=== PATIENT | female | born 1980 | race Caucasian/White ===

== ENCOUNTER → 2016-12-06 11:50 | Observation (INO) ==
[2016-12-06 11:30] LABS: Bilirubin,Urine Negative (Negative); Blood,Urine Negative (Negative); Clarity,Urine Clear (Clear); Color,Urine Yellow (Yellow); Glucose,Urine (UA) Normal (Normal); Ketones,Urine Negative (Negative); Leukocyte Esterase,Urine Trace (Negative); Nitrite,Urine Negative (Negative); Protein,Urine Negative (Neg-Trace); Urobilinogen,Urine Normal (Normal)
[2016-12-06 11:33] LABS: Bacteria,Urine Few per hpf (None-Few); Hyaline Casts,Urine None Seen per lpf (None-Few); RBC,Urine 0-3 per hpf (0-3); Squamous Epithelial Cell,Urine Many per lpf (None-Few)
--- NOTE | 2016-12-06 11:43 | OB/GYN Progress Note ---
Date of Encounter: 12/06/16 Time of Encounter: 11:30 - Assessment and Plan (1) 33 weeks gestation of Current Visit: Yes Status: Acute Patient had a reactive NST. UA does not indicate infection . BP was stable at 117/74. Patient has a follow-up appointment with Tyler El on 12/13/2016. Patient will be discharged home with labor precautions and when to return to triage for evaluation. . Subjective - Subjective Principal diagnosis: Antepartum evaluation Interval history: Patient is a 36 F at 33 wks gestational age that presents for decreased movement. Patient says that she skid and momentarily lost balance last night, but denies any fall or trauma. She denies any light-headedness, dizziness , or syncope. She says she woke up this morning and could not feel any movement. She denies any contractions. Denies vaginal fluid leakage or bleeding. She denies headaches but admits to occasional vision abnormalities of seeing spots. She denies chest pain, nausea, vomiting, fever, dysuria, or diarrhea. Admits to occasional constipation. Antepartum ROS: movement normal (Decreased on admission, but feeling adequate movement during exam), no loss of fluid, no contractions Objective - Vital Signs Vital Signs: Intake and Output 12/05/16 12/06/16 12/06/16 23:59 07:59 15:59 Other: Weight 77.6 kg Patient Weight 12/06/16 23:59 Weight 77.6 kg - Exam FHR: category 1 FHR comments: Baseline 145 Auscultation: bilateral: normal Abdomen: Present: normal appearance, soft, gravid Uterus: Present: normal, firm Comments: Cardio: RRR. +s1 +s2. No murmurs noted. Neuro: CN II-XII intact. No focal deficits noted. DTRs +2 in upper and lower extremities bilaterally. Extremities: No pedal edema noted. Pedal pulses intact bilaterally and symmetrical. HEENT: EOMI. PERRLA. Head normocephalic. Mucous membranes moist. Necl: Trachea midline. No thyromegaly noted. - Labs Labs: Abnormal lab results Ur Leukocyte Esterase Trace (Negative) H 12/06/16 11:20 Urine Microscopic WBC 3-5 per hpf (0-3) H 12/06/16 11:20 Ur Squamous Epith Cells Many per lpf (None-Few) H 12/06/16 11:20 Ur Culture Indicated? YES (NO) A 12/06/16 11:20
[2016-12-06 12:19] LABS: Amphetamine Screen,Urine Negative ng/mL (Cutoff=1000); Barbiturate Screen,Urine Negative ng/mL (Cutoff=200); Benzodiazepines Screen,Urine Negative ng/mL (Cutoff=200); Cannabinoid Screen,Urine Negative ng/mL (Cutoff = 50); Cocaine Screen,Urine Negative ng/mL (Cutoff= 300); Opiate Screen,Urine Negative ng/mL (Cutoff=300); Phencyclidine Screen,Urine Negative ng/mL (Cutoff=25)
== END | disposition home or self-care (01) ==
LOC: 1NENULAB
PROVIDERS: ADMIT Advanced Practice Midwife; ATTEND Advanced Practice Midwife

== ENCOUNTER → 2016-12-25 11:58 | Observation (INO) ==
[2016-12-25 10:46] LABS: Basophils # 0.1 K/mcL (0.0-0.2); Basophils % 0.5 %; Eosinophils # 0.2 K/mcL (0.0-0.6); Eosinophils % 1.5 %; Hematocrit 30.8 % (35.3-44.9); Hemoglobin 10.8 g/dL (11.5-15.4); Immature Granulocytes % 4.3 % (0-4); Lymphocytes # 2.5 K/mcL (0.6-4.6); Mean Corpuscular HGB Conc 35.1 g/dL (31.6-35.5); Mean Corpuscular Hemoglobin 31.3 pg (28.0-33.3); Mean Corpuscular Volume 89.3 fL (83.0-100.0); Mean Platelet Volume 10.2 fL (9.4-12.4); Monocytes % 6.5 %; Neutrophils # 10.9 K/mcL (1.6-8.9); Platelet Count 171 K/mcL (140-400); Red Blood Count 3.45 M/mcL (3.82-4.97); Red Cell Distribution Width 14.2 % (11.5-14.5); Segmented Neutrophils % 71.2 %
[2016-12-25 10:59] LABS: Alanine Aminotransferase 15 Units/L (0-55); Aspartate Amino Transferase 15 Units/L (5-34); BUN/Creatinine Ratio 8 (6-26); Blood Urea Nitrogen 6 mg/dL (7-20); Lactate Dehydrogenase 178 Units/L (159-327); Uric Acid 4.7 mg/dL (2.6-6.0); eGFR For African Americans > 60 (> 60); eGFR For Non-African Americans > 60 (> 60)
[2016-12-25 11:04] LABS: Amphetamine Screen,Urine Negative ng/mL (Cutoff=1000); Barbiturate Screen,Urine Negative ng/mL (Cutoff=200); Benzodiazepines Screen,Urine Negative ng/mL (Cutoff=200); Cannabinoid Screen,Urine Negative ng/mL (Cutoff = 50); Cocaine Screen,Urine Negative ng/mL (Cutoff= 300); Opiate Screen,Urine Negative ng/mL (Cutoff=300); Phencyclidine Screen,Urine Negative ng/mL (Cutoff=25)
[2016-12-25 11:13] LABS: Bilirubin,Urine Negative (Negative); Blood,Urine Negative (Negative); Clarity,Urine Cloudy (Clear); Color,Urine Yellow (Yellow); Glucose,Urine (UA) Normal (Normal); Ketones,Urine Negative (Negative); Leukocyte Esterase,Urine Trace (Negative); Nitrite,Urine Negative (Negative); PH,Urine 7.5 pH Units (5.0-8.0); Protein,Urine Negative (Neg-Trace); Specific Gravity,Urine 1.012 (1.010-1.025); Urobilinogen,Urine Normal (Normal)
[2016-12-25 11:16] LABS: Bacteria,Urine Few per hpf (None-Few); Hyaline Casts,Urine None Seen per lpf (None-Few); RBC,Urine 0-3 per hpf (0-3); Squamous Epithelial Cell,Urine Many per lpf (None-Few)
--- NOTE | 2016-12-25 11:56 | OB/GYN Progress Note ---
Date of Encounter: 12/25/16 Time of Encounter: 11:40 - Assessment and Plan (1) 35 weeks gestation of Current Visit: Yes Status: Acute Patient was complaining of decreased movement. - Reactive NST assessment. - UA revelead trace LE. Culture pending. - UDS was negative. - creatinine within normal range. Patient will be discharged home. Subjective - Subjective Principal diagnosis: Decreased movmement Interval history: Patient is a 36 YO F at 35 5/7 wks gestational age with a PMH of previous C /S that presents for decreased movement since last night. She denies any vaginal fluid leakage or bleeding. She admits to a MORALES since this morning that is a 4/10 in pain scale. She denies any vision changes. She admits to nausea but denies vomiting. She denies any chest pain, shortness of breath, fever, or chills. HIV Ag/Ab: negative T. Pallidum Ab: negative Rubella Ab: positive Varicella Ab: positive Blood type: A+ HepBSAg: non-reactive Antepartum ROS: no loss of fluid, no vaginal bleeding, no movement normal , no contractions Objective - Vital Signs Vital Signs: Intake and Output 12/24/16 12/25/16 12/25/16 23:59 07:59 15:59 Other: Weight 79.3 kg Patient Weight 12/25/16 23:59 Weight 79.3 kg BP: 121/82 HR: 85 - Exam FHR: auscultation normal Auscultation: bilateral: normal Abdomen: Present: normal appearance, soft, gravid. Absent: tenderness Uterus: Present: normal, firm Comments: CV: RRR,. +S1 +S2, no murmurs appreciated Neuro: DTRs +2 in upper and lower extremities bilaterally. - Labs Labs: Abnormal lab results WBC 15.3 K/mcL (4.3-11.1) H 12/25/16 10:34 RBC 3.45 M/mcL (3.82-4.97) L 12/25/16 10:34 Hgb 10.8 g/dL (11.5-15.4) L 12/25/16 10:34 Hct 30.8 % (35.3-44.9) L 12/25/16 10:34 Immature Gran % 4.3 % (0-4) H 12/25/16 10:34 Neutrophils # 10.9 K/mcL (1.6-8.9) H 12/25/16 10:34 BUN 6 mg/dL (7-20) L 12/25/16 10:34 Urine Clarity Cloudy (Clear) A 12/25/16 10:34 Ur Leukocyte Esterase Trace (Negative) H 12/25/16 10:34 Urine Microscopic WBC 5-15 per hpf (0-3) H 12/25/16 10:34 Ur Squamous Epith Cells Many per lpf (None-Few) H 12/25/16 10:34 Ur Culture Indicated? YES (NO) A 12/25/16 10:34
== END | disposition home or self-care (01) ==
LOC: 1NENULAB
PROVIDERS: ADMIT Obstetrics & Gynecology; ATTEND Obstetrics & Gynecology

== ENCOUNTER 2017-01-03 20:45 | Inpatient (IN) ==
[~2017-01-03 20:45] MED LIST: Famotidine 20 MG/2 ML VIAL IVP PRN; Metoclopramide 10 MG/2 ML VIAL IVP PRN; Naloxone 0.4 MG/ML INJ IVP PRN; Ringers Solution, Lactated 1,000 ML IVC SCH
[2017-01-03 21:39] LABS: Basophils # 0.1 K/mcL (0.0-0.2); Basophils % 0.4 %; Eosinophils # 0.1 K/mcL (0.0-0.6); Eosinophils % 0.9 %; Hemoglobin 11.5 g/dL (11.5-15.4); Immature Granulocytes % 2.8 % (0-4); Lymphocytes # 2.7 K/mcL (0.6-4.6); Lymphocytes % 16.7 %; Mean Corpuscular HGB Conc 34.8 g/dL (31.6-35.5); Mean Corpuscular Hemoglobin 31.5 pg (28.0-33.3); Mean Corpuscular Volume 90.4 fL (83.0-100.0); Mean Platelet Volume 10.8 fL (9.4-12.4); Monocytes # 1.1 K/mcL (0.0-1.3); Monocytes % 6.6 %; Neutrophils # 11.5 K/mcL (1.6-8.9); Platelet Count 164 K/mcL (140-400); Red Blood Count 3.65 M/mcL (3.82-4.97); Segmented Neutrophils % 72.6 %
[2017-01-03 21:52] LABS: Alanine Aminotransferase 16 Units/L (0-55); Aspartate Amino Transferase 19 Units/L (5-34); BUN/Creatinine Ratio 10 (6-26); Blood Urea Nitrogen 7 mg/dL (7-20); Lactate Dehydrogenase 192 Units/L (159-327); eGFR For African Americans > 60 (> 60); eGFR For Non-African Americans > 60 (> 60)
--- NOTE | 2017-01-03 22:02 | OB/GYN History & Physical ---
Date of Encounter: 01/03/17 Time of Encounter: 21:59 Assessment and Plan (1) 37 weeks gestation of Current visit: Yes Status: Acute (2) History of delivery affecting Current visit: Yes Status: Acute (3) Encounter for tubal ligation Current visit: Yes Status: Acute (4) Uterine contractions Current visit: Yes Status: Acute Pt contiues to have painful uterine contractions. Decision made by Dr. Lopez to proceed with delivery. Pt also desires tubal ligation. consents signed. Admit to labor and delivery prepare of . History of Present Illness Chief complaint: contractions HPI: Ms. Alonso is a 36 year old female 37+0 weeks presents to triage with contractions that have been off and on during the day and have increased in intensity. Reports good movement, denies vaginal bleeding and leaking of fluid. with low lying placenta which is now resolved and history of previous section. Desires tubal ligation. Labs: A+, rubella and varicella immune, GBS+, all other serologies negative. Past Med Surg Social Fam HX - Past Medical History Medical history: no medical history Psychiatric history: no psych history - Past Surgical History Surgical History: , other - Social History Smoking Status: Never smoker Smokeless Tobacco Status: No Alcohol use: none Drug use: none - Family History Mother Adopted: No Living Status: Still Living Hx Family Cardiac Disorders: No Hx Family Respiratory Disorders: No Hx Family Cancer: No Hx Family GI Disorders: No Hx Family Genitourinary Disorders: No Hx Family Endocrine Disorder: No Hx Family Musculoskeletal Disorders: No Hx Family Neuromuscular Disorders: No Hx Family Neurologic Disorders: No Hx Family HEENT Disorders: No Hx Family Autoimmune Disorders: No Hx Family Reproductive Disorders: No Hx Family Psychosocial Disorders: No Hx Family Medical Disorders: Yes (anemia) Obstetrical History - Pregnancies : 2 Para: 1 Term: 1 : 0 Ab's: 0 Livin Medications and Allergies Ferrous Sulfate [Iron] 325 mg PO DAILY 11/24/16 [History] Loratadine [Claritin] 10 mg PO DAILY 11/24/16 [History] Folic Acid 20 mg PO DAILY 12/06/16 [History] Vit/Iron Fumarate/FA [ Tablet] 1 tab PO DAILY 12/06/16 [History ] 3 Allergy/AdvReac Type Severity Reaction Status Date / Time Sulfa (Sulfonamide Allergy Rash Verified 11/24/16 16:50 Antibiotics) hydrocodone [From Vicodin] AdvReac Mild Nausea Verified 12/25/16 10:40 Exam - Constitutional Constitutional: well developed, well nourished, no acute distress, average body habitus - Neck Neck exam: full ROM - Lungs Respiratory exam: CTAB - Cardiovascular Cardiovascular exam: RRR - Abdomen Abdomen: Present: bowel sounds normal - Extremities Extremities exam: normal capillary refill, normal inspection - Vulva Vulva: bilateral: normal - Vagina Vagina: Present: normal moisture - Cervix Dilation: 0 - Uterus Uterus exam: Present: normal size, normal contour Results Result Diagrams: 01/03/17 20:16 01/03/17 20:16 Abnormal lab results WBC 15.8 K/mcL (4.3-11.1) H 01/03/17 20:16 RBC 3.65 M/mcL (3.82-4.97) L 01/03/17 20:16 Hct 33.0 % (35.3-44.9) L 01/03/17 20:16 Neutrophils # 11.5 K/mcL (1.6-8.9) H 01/03/17 20:16 All other labs normal.
--- NOTE | 2017-01-03 22:13 | Anesthesia Evaluation PreOp ---
Date of Encounter: 01/03/17 Time of Encounter: 22:09 - Past History Planned Operation: csection Cardiac History: HTN Pulmonary History: Denies Any Significant HX APPLICATION SUPPORT ANALYST History: Denies Any Significant HX Other Medical History: Denies Any Significant HX Anesthesia History: No Prior Anesthetic Complications, Past Anesthesia (tonsils , csection, PONV) : Yes (, 37 weeks) Alcohol Use: none Drug use: none Medications and Allergies Ferrous Sulfate [Iron] 325 mg PO DAILY 11/24/16 [History] Loratadine [Claritin] 10 mg PO DAILY 11/24/16 [History] Folic Acid 20 mg PO DAILY 12/06/16 [History] Vit/Iron Fumarate/FA [ Tablet] 1 tab PO DAILY 12/06/16 [History ] 3 Allergy/AdvReac Type Severity Reaction Status Date / Time Sulfa (Sulfonamide Allergy Rash Verified 11/24/16 16:50 Antibiotics) hydrocodone [From Vicodin] AdvReac Mild Nausea Verified 12/25/16 10:40 - Meds/Allergy Pre-op Review Medications Reviewed: Yes Allergies Reviewed: Yes Beta Blockers on Current Med List: No Anesthesia Results - Labs 01/03/17 20:16 01/03/17 20:16 Anesthesia Exam O2 Sat Height 1.55 m Weight 80 kg Height: 60 Weight: 80 NPO (# of Hours): 1530 candy bar - HEENT Pupil (Motor): Pupils equal Mallampati: II Teeth: Normal Oral Opening: Greater than 3 - APPLICATION SUPPORT ANALYST LOC: Oriented APPLICATION SUPPORT ANALYST Motor: Normal RUE, Normal LUE, Normal RLE, Normal LLE, Normal Face APPLICATION SUPPORT ANALYST Sensory: Normal: RUE, LUE, RLE, LLE, Face - Cardiac Rhythm: Regular Murmur: None JVD: No Carotid Bruit: No - Pulmonary Breath Sounds: bilateral Clear Respiratory Effort: Symmetrical Anesthesia Assess/Plan ASA Score: 2 Modified Cathy Scale for Level of Consciousness: Cooperative, oriented, and tranquil Anesthetic Plan: Regional Autologous Blood: No Monitoring Plan: Standard Monitors Recovery Plan: PACU
[2017-01-03] MEDS ORDERED: *HR* Nalbuphine 20 MG/ML AMPUL ONE (22:37)
[2017-01-03] MEDS ORDERED: *HR* Nalbuphine 20 MG/ML AMPUL IVP PRN (22:39)
[2017-01-03] MEDS ORDERED: *HR* Morphine Sulfate/PF 5 MG/10 ML AMPUL ONE (23:42)
[2017-01-03] MEDS ORDERED: *HR* FentaNYL (PF) 100 MCG/2 ML VIAL ONE (23:42)
[2017-01-03] MEDS ORDERED: *HR* Oxytocin 10 UNIT/ML VIAL IM ONE (23:45)
[2017-01-03] MEDS ORDERED: *HR* Phenylephrine 10 MG/ML VIAL ONE (23:45)
[2017-01-04] MEDS ORDERED: Metoclopramide 10 MG/2 ML VIAL IVP PRN (00:06)
[2017-01-04] MEDS ORDERED: Ondansetron 4 MG/2 ML VIAL IVP PRN (00:06)
[2017-01-04] MEDS ORDERED: Sennosides 8.6 MG TABLET PO PRN (00:06)
[2017-01-04] MEDS ORDERED: EPHEDrine 50 MG/ML VIAL ONE (00:10)
[2017-01-04] MEDS ORDERED: Ringers Solution, Lactated 1,000 ML IVC SCH (00:15)
[2017-01-04 00:27] LABS: Amphetamine Screen,Urine Negative ng/mL (Cutoff=1000); Barbiturate Screen,Urine Negative ng/mL (Cutoff=200); Benzodiazepines Screen,Urine Negative ng/mL (Cutoff=200); Cannabinoid Screen,Urine Negative ng/mL (Cutoff = 50); Cocaine Screen,Urine Negative ng/mL (Cutoff= 300); Opiate Screen,Urine Negative ng/mL (Cutoff=300); Phencyclidine Screen,Urine Negative ng/mL (Cutoff=25)
[2017-01-04] MEDS ORDERED: *HR* HYDROmorphone (PF) 1 MG/ML SYRINGE IVP PRN (00:27)
[2017-01-04] MEDS ORDERED: Ringers Solution, Lactated 1,000 ML ONE (00:45)
[2017-01-04] MEDS ORDERED: Ondansetron 4 MG/2 ML VIAL ONE (01:30)
--- NOTE | 2017-01-04 01:54 | OB/GYN Procedure Note ---
Section - Date of procedure: 01/04/17 Preop diagnosis: desires repeat , desires sterilization Post-op diagnosis: same Procedure: repeat low transverse, bilateral tubal ligation Surgeon: Martha Lopez Estimated blood loss (cc): 500 Anesthesia Type: Spinal section complications: none, uterine atony (resolved with Hemabate injected into myometrium) Disposition: L&D Recovery Room Specimens: Right tube segment, Left tube segment - Narrative Narrative: Patient was brought to the operating room and was given satisfactory spinal anesthesia. The abdomen was prepped and draped in a sterile fashion. A Pfannenstiel incision was made and carried sharply down to the level of fascia. The fascia was incised transversely. The fascia was dissected away from the underlying rectus muscles. With sharp and blunt dissection, rectus muscles were divided in midline. The perineum was entered bluntly. The incision was carried vertically with scissors. Transverse incision was made across the bladder peritoneum. The bladder was dissected away from the underlying lower uterine segment. Bladder retractor was placed to protect the bladder. The lower uterine segment was entered sharply with a scalpel. Incision was manually extended. Clear stained amniotic fluid was encountered. The infant's head was pulled up and delivered easily as were the shoulders and body. The mouth and oropharynx were suctioned. The cord was clamped and cut. The was passed off to the nurses in satisfactory condition. Placenta was extracted completely and found to be intact. Uterus was explored and found to be empty. Uterus was delivered through the abdominal incision and massaged vigorously. Intravenous Pitocin was administered. The margins of the uterine incision was closed primarily with a running locking stitch of 0 Vicryl with adequate hemostasis. At this point, attention was diverted to the patient' s tubes, a Byron clamp grasped the isthmic portion of each tube and approximately 1-cm knuckle on either side was tied off with two lengths of 0 plain catgut. Intervening knuckle was excised and passed off the field. The proximal end of the tubal mucosa was cauterized. Cul-de-sac and gutters were suctioned vigorously. Due to uterine atony, Hemabate was injected into the myometrium. The uterus was noted to be firm shortly after Hemabate injection. The uterus was returned to its proper anatomic position in the abdomen. The fascia was closed with a simple running stitch of 0 vicryl. The subcutaneous tissue was closed with 3-0 vicryl. The skin was closed with 4- 0 vicryl. Patient was brought to the recovery room in satisfactory condition. There were no complications. All sponge, needle, and instrument counts were reported to be correct.
[2017-01-04 04:42] LABS: Basophils # 0.1 K/mcL (0.0-0.2); Basophils % 0.3 %; Eosinophils % 0.2 %; Hematocrit 28.5 % (35.3-44.9); Immature Granulocytes % 1.4 % (0-4); Lymphocytes # 1.7 K/mcL (0.6-4.6); Lymphocytes % 9.4 %; Mean Corpuscular Hemoglobin 30.8 pg (28.0-33.3); Mean Corpuscular Volume 90.5 fL (83.0-100.0); Mean Platelet Volume 10.2 fL (9.4-12.4); Monocytes # 0.8 K/mcL (0.0-1.3); Monocytes % 4.6 %; Neutrophils # 15.1 K/mcL (1.6-8.9); Platelet Count 136 K/mcL (140-400); Red Blood Count 3.15 M/mcL (3.82-4.97); Red Cell Distribution Width 14.2 % (11.5-14.5); Segmented Neutrophils % 84.1 %
[2017-01-04 04:44] LABS: Hemoglobin 9.7 g/dL (11.5-15.4)
[2017-01-04] MEDS: Oxytocin 20 units/ LR 1000 mL 20 UNIT/1,000 ML BAG IVC SCH ×2 (10:55→18:47)
[2017-01-04] MEDS: Loratadine 10 MG TABLET PO SCH (12:08)
[2017-01-04] MEDS: Ibuprofen 600 MG TABLET PO PRN (17:36)
--- NOTE | 2017-01-04 19:49 | Anesthesia Evaluation Post Op ---
Date of Encounter: 01/04/17 Time of Encounter: 10:30 - Vital Signs Vital Signs: Vital Signs - 24 hr 01/04/17 05:45 01/04/17 06:15 01/04/17 06:45 Temperature 98.0 F 98.0 F 97.9 F Pulse Rate 115 109 109 Respiratory Rate 20 16 16 Blood Pressure 125/86 113/78 113/72 O2 Sat by Pulse Oximetry 97 97 97 01/04/17 08:45 01/04/17 09:24 01/04/17 11:45 Temperature 98.4 F 97.8 F 98.8 F Pulse Rate 117 115 108 Respiratory Rate 16 16 16 Blood Pressure 122/74 117/68 107/67 O2 Sat by Pulse Oximetry 96 96 98 01/04/17 16:05 Temperature 99.4 F Pulse Rate 106 Respiratory Rate 16 Blood Pressure 108/67 O2 Sat by Pulse Oximetry 96 - Lungs Lungs: Clear Ascult./Percussion - Airway Airway: Non-obstructed - Cardiovascular Regular Rate - Mental Status Mental Status: Alert & Oriented, Answers Appropriately - Pain Pain Scale: 3 Pain Scale used: Numeric (1 - 10) - Nausea Vomiting Nausea Vomiting: Not Present - Hydration Hydration: Tolerates oral liquids, Ice chips - Discharge PostOp Status: Transfer Patient to floor Attestation: Patient alert and communicative.
[2017-01-05] MEDS: Ibuprofen 600 MG TABLET PO PRN ×2 (03:22→19:01)
[2017-01-05] MEDS: Prenatal Vit/FA 1 EACH TABLET PO SCH (08:22)
[2017-01-05] MEDS: Loratadine 10 MG TABLET PO SCH (08:23)
[2017-01-05] MEDS: Simethicone 80 MG TAB.CHEW PO PRN ×3 (08:23→19:02)
[2017-01-05] MEDS: *HR* OxyCODONE/APAP 5/325 TABLET PO PRN ×2 (08:23→13:10)
--- NOTE | 2017-01-05 08:48 | OB/GYN Progress Note ---
Date of Encounter: 01/05/17 Time of Encounter: 08:46 - Assessment and Plan (1) Status post delivery Current Visit: Yes Status: Acute Continue routine care Patient meeting post-op day #2 goals Abdomen tympanic and distended, just started passing flatus (2) Tubal ligation status Current Visit: Yes Status: Acute (3) Anemia, Current Visit: Yes Status: Acute Continue iron as ordered. Patient asymptomatic (4) Breast feeding status of mother Current Visit: Yes Status: Acute support prn (5) Hypertension affecting in third trimester Current Visit: No Status: Acute Normal blood pressures Subjective - Subjective Principal diagnosis: S/P section Patient reports: appetite normal, voiding normally, pain well controlled : doing well, nursing well Objective - Vital Signs Latest vital signs: Vital Signs Temp Pulse Resp BP Pulse Ox 01/05/17 08:02 95 01/05/17 07:59 97.7 F 90 16 107/72 01/04/17 23:43 99.1 F 95 16 107/65 95 01/04/17 21:30 98.6 F 107 14 100/66 96 01/04/17 19:50 98.6 F 114 16 101/67 94 01/04/17 16:05 99.4 F 106 16 108/67 96 01/04/17 11:45 98.8 F 108 16 107/67 98 01/04/17 09:24 97.8 F 115 16 117/68 96 Intake and Output 01/04/17 01/05/17 01/05/17 23:59 07:59 15:59 Intake Total 1200 / 1200 1600 / 1600 Output Total 860 / 860 500 / 500 Balance 1200 / 1200 740 / 740 -500 / -500 Intake: IV Fluids 1000 / 1000 1000 / 1000 Pitocin 20 unit In 1,000 ml @ 1000 / 1000 1000 / 1000 125 mls/hr IVC .Q8H SAIGE Rx#: [id number] Oral 200 / 200 600 / 600 Output: Urine 500 / 500 Catheter 860 / 860 Other: Weight 78.925 kg Patient Weight 01/05/17 23:59 Weight 78.925 kg - Exam Lungs: bilateral: normal Chest: Normal S1, Normal S2 Extremities: Present: normal, edema (1+ pitting edema bilateral lower extremities) Abdomen: Present: soft, distention (Tympanic) Incision: Present: dressed (To be removed this AM) Uterus: Present: normal, firm Fundal Height: 1 (U/1)
[2017-01-06] MEDS: Ibuprofen 600 MG TABLET PO PRN ×4 (01:04→21:45)
[2017-01-06] MEDS: *HR* OxyCODONE/APAP 5/325 TABLET PO PRN ×3 (04:48→18:11)
[2017-01-06] MEDS: Simethicone 80 MG TAB.CHEW PO PRN ×3 (04:48→18:12)
[2017-01-06] MEDS: Prenatal Vit/FA 1 EACH TABLET PO SCH (08:09)
[2017-01-06] MEDS: Loratadine 10 MG TABLET PO SCH (08:09)
[2017-01-06] MEDS ORDERED: MOM Conc 10 ML UD.LIQ PO ONE (12:22)
--- NOTE | 2017-01-06 12:50 | OB/GYN Progress Note ---
Date of Encounter: 01/06/17 Time of Encounter: 12:47 - Assessment and Plan (1) Breast feeding status of mother Current Visit: Yes Status: Acute support prn (2) Status post delivery Current Visit: Yes Status: Acute Continue routine /postop care. Meeting day 2 milestones Possible discharge today (3) Tubal ligation status Current Visit: Yes Status: Acute Subjective - Subjective Principal diagnosis: Status post section Patient reports: appetite normal, voiding normally, pain well controlled, ambulating normally : doing well, nursing well ([place] to stay for phototherapy) Objective - Vital Signs Latest vital signs: Vital Signs Temp Pulse Resp BP Pulse Ox 01/06/17 08:20 98.3 F 81 16 109/67 01/06/17 08:14 12 01/05/17 19:45 99.2 F 105 14 134/70 96 Intake and Output 01/05/17 01/06/17 01/06/17 23:59 07:59 15:59 Other: Weight 78.471 kg Patient Weight 01/06/17 23:59 Weight 78.471 kg - Exam Lungs: bilateral: normal Chest: Normal S1, Normal S2 Extremities: Present: normal, edema Abdomen: Present: soft, distention (tympanic) Incision: Present: normal, intact (steri strips intact) Uterus: Present: normal, firm Fundal Height: 1 (U/1)
[2017-01-07] MEDS: *HR* OxyCODONE/APAP 5/325 TABLET PO PRN ×2 (06:00→13:12)
[2017-01-07 08:13] VITALS: BP 120/79
[2017-01-07] MEDS: Ibuprofen 600 MG TABLET PO PRN (10:04)
[2017-01-07] MEDS: Loratadine 10 MG TABLET PO SCH (10:05)
[2017-01-07] MEDS: Prenatal Vit/FA 1 EACH TABLET PO SCH (10:05)
--- NOTE | 2017-01-07 11:18 | Discharge Summary ---
Date of Encounter: 01/07/17 Time of Encounter: 11:16 - Discharge Diagnosis (1) 37 weeks gestation of Priority: Secondary Status: Acute (2) History of delivery affecting Priority: Primary Status: Acute (3) Encounter for tubal ligation Priority: Primary Status: Acute (4) Uterine contractions Priority: Primary Status: Acute (5) delivery delivered Priority: Primary Status: Acute Comments: Pt states pain well managed on po pain medication, , tolerates po diet. Desires discharge. - Discharge Medications Prescriptions: OxyCODONE/APAP 5/325 [Percocet 5/325 MG] 1 each PO Q4HR PRN #20 tablet PRN Reason: Moderate pain 4-6 Ibuprofen [Motrin] 600 mg PO Q6HR PRN #60 tablet PRN Reason: Cramping Docusate [Colace] 100 mg PO BID #60 capsule Ferrous Sulfate 325 mg PO DAILY #60 tablet Home Medications: Ferrous Sulfate [Iron] 325 mg PO DAILY 11/24/16 [History] Loratadine [Claritin] 10 mg PO DAILY 11/24/16 [History] Vit/Iron Fumarate/FA [ Tablet] 1 tab PO DAILY 12/06/16 [History ] Docusate [Colace] 100 mg PO BID #60 capsule 01/07/17 [Rx] Ferrous Sulfate 325 mg PO DAILY #60 tablet 01/07/17 [Rx] Ibuprofen [Motrin] 600 mg PO Q6HR PRN #60 tablet 01/07/17 [Rx] OxyCODONE/APAP 5/325 [Percocet 5/325 MG] 1 each PO Q4HR PRN #20 tablet 01/07/17 [Rx] Vit/FA 1 each PO DAILY tablet 01/07/17 [Rx] Simethicone [Gas-X] 80 mg PO TID PRN tab.chew 01/07/17 [Rx] Allergies/Adverse Reactions: 3 Allergy/AdvReac Type Severity Reaction Status Date / Time Sulfa (Sulfonamide Allergy Rash Verified 11/24/16 16:50 Antibiotics) hydrocodone [From Vicodin] AdvReac Mild Nausea Verified 12/25/16 10:40 Data Procedures and tests throughout hospitalization: Laboratory Tests 01/03/17 01/03/17 01/03/17 20:16 20:16 23:55 WBC 15.8 H RBC 3.65 L Hgb 11.5 Hct 33.0 L MCV 90.4 MCH 31.5 MCHC 34.8 RDW 14.0 Plt Count 164 MPV 10.8 Immature Gran % 2.8 Seg Neutrophils % 72.6 Lymphocytes % 16.7 Monocytes % 6.6 Eosinophils % 0.9 Basophils % 0.4 Neutrophils # 11.5 H Lymphocytes # 2.7 Monocytes # 1.1 Eosinophils # 0.1 Basophils # 0.1 BUN 7 Creatinine 0.71 Est GFR ( Amer) > 60 Est GFR (Non-Af Amer) > 60 BUN/Creatinine Ratio 10 Uric Acid 5.0 AST 19 ALT 16 Lactate Dehydrogenase 192 Urine Opiates Screen Negative Ur Barbiturates Screen Negative Ur Phencyclidine Scrn Negative Ur Amphetamines Screen Negative U Benzodiazepines Scrn Negative Urine Cocaine Screen Negative U Marijuana (THC) Screen Negative 01/04/17 04:07 WBC 18.0 H RBC 3.15 L Hgb 9.7 L D Hct 28.5 L MCV 90.5 MCH 30.8 MCHC 34.0 RDW 14.2 Plt Count 136 L MPV 10.2 Immature Gran % 1.4 Seg Neutrophils % 84.1 Lymphocytes % 9.4 Monocytes % 4.6 Eosinophils % 0.2 Basophils % 0.3 Neutrophils # 15.1 H Lymphocytes # 1.7 Monocytes # 0.8 Eosinophils # 0.0 Basophils # 0.1 BUN Creatinine Est GFR ( Amer) Est GFR (Non-Af Amer) BUN/Creatinine Ratio Uric Acid AST ALT Lactate Dehydrogenase Urine Opiates Screen Ur Barbiturates Screen Ur Phencyclidine Scrn Ur Amphetamines Screen U Benzodiazepines Scrn Urine Cocaine Screen U Marijuana (THC) Screen Date of admission: 01/03/17 20:45 Primary care physician: PCP NONE Discharging clinician: Lorena Ventura Anticipated date of discharge: 01/07/17 - Patient Status Disposition: Home, Self-Care Condition: Good Functional capacity at discharge: independent ambulation Overall status at discharge: patient is back to baseline - Discharge Instructions Follow Up With: NONE,PCP [Primary Care Provider] - Additional Instructions: Perineal Care: Always wipe front to back Change your pad frequently Use your joshua bottle with warm water and spray front to back Do not douche, use tampons, have sexual intercourse or put anything in your vagina for 4-6 weeks after delivery Bleeding: Vaginal bleeding can last up to 6 weeks Your menstrual period may return as early as 6 weeks after you are discharged from the hospital Flavia/Stitches Care: Care Stitches will dissolve on their own If you have flavia, they will need to be removed in the doctors office within 5-7 days. You may shower with stitches or flavia Drip plan or soapy water over the incision to clean. Pat dry gently with a clean towel. Make sure you completely dry under the skin folds DO NOT USE powders, lotions, rubbing alcohol or hydrogen peroxide on or around your incision. This will slow your wound healing It is normal to have soreness, burning, tingling, itchiness and/or numbness as your incision heals Activity: Rest frequently Do not lift anything heavier than a gallon of milk, up to 10-15 pounds No driving for 1-2 weeks for Vaginal delivery No driving for 2-4 weeks for delivery Take stairs slowly, one at a time Gradually increase your daily activity until you are back to your normal routine Do not exercise until you have had your follow-up appointment Bathing: Take a shower daily Do not take a tub bath for the first 4 weeks Diet: Drink plenty of water and fruit juices Eat a well-balanced diet with foods high in fiber such as fruits and vegetables Depression: Your hormones have a major impact on your feelings and emotions. Hormone imbalance may cause changes in your mood, creating unfamiliar thoughts and actions. Support is available to help you understand and cope with these feelings and mood changes. If you answer yes to any of the following questions, please call your health care provider: Are you having trouble sleeping? Are you feeling isolated? Have you lost your appetite? Are you having thoughts of hurting yourself or others? WARNING SIGNS: Heavy bleeding from the vagina (blood is bright red and soaks a sanitary pad in an hour or less.) Passing a blood clot larger than your fist Discharge from the vagina that has a bad odor Temperature over 100.4 F, or if you feel cold and have chills An episiotomy site that is warm, swollen or oozing. Use a mirror if needed Urination (pee) that is painful, very red and swollen or leaking fluid An incision that is painful, very red and swollen and leaking fluid An incision that has come open Breasts that are painful or full with flu like symptoms Redness, warmth or swelling in the calf of your leg Trouble breathing, dizziness, visual disturbance or faintness *Notify your health care provider immediately or go to the nearest Emergency Room if you experience any of the above signs.* To contact the nurses station 24 hours a day, For non-urgent, routine questions, please call the office at - Diet and Activity Activity: resume usual activities as tolerated Diet: regular diet Hospital Course Reason for admission: IUP at term Delivery: section Episiotomy: none Laceration: none complications: none Discharge diagnosis: IUP at term delivered baby: female Hospital course: Section - Date of procedure: 01/04/17 Preop diagnosis: desires repeat , desires sterilization Post-op diagnosis: same Procedure: repeat low transverse, bilateral tubal ligation Surgeon: Martha Lopez Estimated blood loss (cc): 500 Anesthesia Type: Spinal section complications: none, uterine atony (resolved with Hemabate injected into myometrium) Disposition: L&D Recovery Room Specimens: Right tube segment, Left tube segment Stable in PP and appropriate for discharge. OAARS reviewed. Time Attestation: Total time spent providing and/or coordinating discharge services: Time Spent: Less than 30 minutes - VTE Documentation of Mechanical Device: Intermittent pneumatic compression device Exam - Constitutional Vitals: Temp Pulse Resp BP Pulse Ox 98.5 F 77 16 120/79 97 01/07/17 07:40 01/07/17 07:40 01/07/17 10:00 01/07/17 07:40 01/06/17 21:50 General appearance IM: A&O X 3 - Respiratory Respiratory exam: Present: CTAB - Cardiovascular Cardiovascular exam IM: Present: RRR - GI/Abdominal GI/Abdominal exam IM: soft Incision: normal, intact - Uterine Tone: Firm Uterus Position: At Umbilicus - Extremities Exam Extremities exam IM: Present: normal capillary refill, normal inspection - Neurological Exam Neurological exam: normal gait, oriented X3 - Psychiatric Additional comments: Reports good mood
== END 2017-01-07 14:00 | disposition home or self-care (01) | DRG 765 ==
LOC: 1NENULAB → 1NENUOBS 01-04 03:41
PROVIDERS: ADMIT Student in an Organized Health Care Education/Training Program; ATTEND Student in an Organized Health Care Education/Training Program